=== PATIENT | female | born 1965 | race Caucasian/White ===

== ENCOUNTER 2020-02-16 21:18 | Emergency (ER) | payer OTHER ==
[~2020-02-16] VITALS: Ht 170.1 cm; Wt 83.5 kg
[~2020-02-16 21:18] MED LIST: MULTIPLE VITAMI1 TA3 PO; ZYRTEC10 MG PO
[2020-02-17] MEDS ORDERED: AUGMENTIN 875875 MG PO (00:13)
== END 2020-02-17 02:08 | disposition home or self-care (01) ==
LOC: ED 21:18
DX: S61.411A Laceration without foreign body of right hand, initial encounter (principal); Z88.8 Allergy status to other drugs, medicaments and biological substances; Z79.899 Other long term (current) drug therapy; W54.0XXA Bitten by dog, initial encounter; Y93.89 Activity, other specified; Y92.89 Other specified places as the place of occurrence of the external cause; Y99.8 Other external cause status

== ENCOUNTER 2020-02-19 09:01 | Emergency (ER) | payer OTHER ==
[~2020-02-19] VITALS: Wt 83.9 kg
[~2020-02-19 09:01] MED LIST changes: +AUGMENTIN 875875 MG PO
== END 2020-02-19 09:40 | disposition home or self-care (01) ==
LOC: ED 09:01
DX: Z23 Encounter for immunization (principal); Z88.8 Allergy status to other drugs, medicaments and biological substances; Z79.899 Other long term (current) drug therapy

== ENCOUNTER 2020-02-23 09:39 | Emergency (ER) | payer OTHER ==
[~2020-02-23] VITALS: Ht 170.1 cm; Wt 83.5 kg
== END 2020-02-23 10:46 | disposition home or self-care (01) ==
LOC: ED 09:39
DX: S61.411D Laceration without foreign body of right hand, subsequent encounter (principal); Z23 Encounter for immunization; Z48.02 Encounter for removal of sutures; Z88.1 Allergy status to other antibiotic agents; Z79.899 Other long term (current) drug therapy; X58.XXXD Exposure to other specified factors, subsequent encounter

== ENCOUNTER 2020-03-01 08:47 | Emergency (ER) | payer OTHER ==
[~2020-03-01] VITALS: Ht 170.1 cm; Wt 83.5 kg
== END 2020-03-01 10:02 | disposition home or self-care (01) ==
LOC: ED 08:47
DX: Z23 Encounter for immunization (principal); Z88.1 Allergy status to other antibiotic agents; Z79.899 Other long term (current) drug therapy

== ENCOUNTER → 2020-05-06 | Outpatient (CLI) | payer OTHER | END | disposition home or self-care (01) | LOC: COVID19 13:10 | PROVIDERS: ATTEND Family Medicine | DX: Z20.828 Contact with and (suspected) exposure to other viral communicable diseases (principal) ==